=== PATIENT | male | born 1940 | race Caucasian/White ===

== ENCOUNTER → 2017-01-14 | Outpatient (CLI) | payer BC ==
[~2017-01-14] MED LIST: CHOL400C7 PO; MULT-190 PO; MULTTAB PO; OXYC-409 PO; RIVA1TAB PO
[2017-01-14 09:36] LABS: BASO % 0.2 %; BASO ABS # 0.01 K/uL (0-0.2); COMPLETE YES; EOS % 1.3 %; HEMATOCRIT 43.7 % (42-52); IG% 0.2 %; LYMPH % 32.1 %; LYMPH ABS # 1.77 K/uL (1.2-3.4); MEAN CELL VOLUME 91.8 fL (80-100); MEAN CORPUSCULAR HEMOGLOBIN 31.3 pg (25-34); MEAN CORPUSCULAR HGB CONC 34.1 g/dl (32-36); MEAN PLATELET VOLUME 12.7 fL (7.4-10.4); MONO % 9.3 %; NEUT % 56.9 %; PLATELET COUNT 186 K/uL (130-400); RED BLOOD COUNT 4.76 M/uL (4.7-6.1); WHITE BLOOD COUNT 5.51 K/uL (4.8-10.8)
[2017-01-14 09:48] LABS: ALT/SGPT 18 U/L (12-78); BLOOD UREA NITROGEN 19 mg/dl (7-18); CALCIUM 9.3 mg/dl (8.5-10.1); CARBON DIOXIDE 25 mmol/L (21-32); CHLORIDE 105 mmol/L (98-107); CREATININE 0.89 mg/dl (0.60-1.40); GLUCOSE 93 mg/dl (70-99); POTASSIUM 4.2 mmol/L (3.5-5.1); SODIUM 140 mmol/L (136-145)
[2017-01-14 09:58] LABS: ALB/GLOB RATIO 1.3 (0.9-2); ALKALINE PHOSPHATASE 60 U/L (45-117); AST/SGOT 14 U/L (15-37)
== END | disposition home or self-care (01) ==
LOC: C.LAB1850 07:23
PROVIDERS: ATTEND Internal Medicine
DX: E03.9 Hypothyroidism, unspecified (principal)

== ENCOUNTER → 2017-07-15 | Outpatient (CLI) | payer BC | END | disposition home or self-care (01) | LOC: C.LAB1850 09:28 | PROVIDERS: ATTEND Internal Medicine | DX: E03.9 Hypothyroidism, unspecified (principal) ==

== ENCOUNTER → 2018-01-12 | Outpatient (CLI) | payer BC ==
[2018-01-12 09:35] LABS: BASO % 0.4 %; BASO ABS # 0.02 K/uL (0-0.2); EOS % 1.2 %; EOS ABS # 0.06 K/uL (0-0.5); HEMATOCRIT 42.8 % (42-52); HEMOGLOBIN 14.7 g/dL (14.0-18.0); IG# 0.01 K/uL (0.00-0.02); LYMPH % 32.2 %; LYMPH ABS # 1.64 K/uL (1.2-3.4); MEAN CELL VOLUME 90.3 fL (80-100); MEAN CORPUSCULAR HGB CONC 34.3 g/dl (32-36); MEAN PLATELET VOLUME 12.2 fL (7.4-10.4); MONO % 8.4 %; MONO ABS # 0.43 K/uL (0.11-0.59); NEUT % 57.6 %; NEUT ABS # 2.94 K/uL (1.4-6.5); PLATELET COUNT 188 K/uL (130-400); RED CELL DISTRIBUTION WIDTH CV 13.2 % (11.5-14.5); RED CELL DISTRIBUTION WIDTH SD 43.7 fL (36.4-46.3)
[2018-01-12 10:02] LABS: ALT/SGPT 22 U/L (12-78); AST/SGOT 16 U/L (15-37); BLOOD UREA NITROGEN 19 mg/dl (7-18); CALCIUM 8.7 mg/dl (8.5-10.1); CARBON DIOXIDE 26 mmol/L (21-32); GLUCOSE 95 mg/dl (70-99); POTASSIUM 3.8 mmol/L (3.5-5.1); SODIUM 137 mmol/L (136-145)
[2018-01-12 10:09] LABS: ALKALINE PHOSPHATASE 63 U/L (45-117); CHOLESTEROL 150 mg/dl (0-200); LDL CHOLESTEROL CALCULATED 78 mg/dl; TOTAL PROTEIN 7.3 gm/dl (6.4-8.2)
== END | disposition home or self-care (01) ==
LOC: C.LAB1850 07:37
PROVIDERS: ATTEND Internal Medicine
DX: Z00.00 Encounter for general adult medical examination without abnormal findings (principal); I10 Essential (primary) hypertension; K21.9 Gastro-esophageal reflux disease without esophagitis; E03.9 Hypothyroidism, unspecified

== ENCOUNTER 2018-01-31 19:09 | Emergency (ER) | payer BC ==
[~2018-01-31] VITALS: Ht 170.2 cm; Wt 81.3 kg
[2018-01-31 19:17] VITALS: TEMP 36.7; Ht 170.2 cm; Wt 81.3 kg
--- NOTE | 2018-01-31 19:43 | EMERGENCY ROOM VISIT NOTE ---
ED Visit Note First contact with patient: 19:20 I have seen and examined this patient with Chris Mejia and generally agree with the treatment plan as discussed. Allergies Coded Allergies: No Known Allergies (Unverified , NONE, 01/31/18) Vital Signs Date Time Temp Pulse Resp B/P (MAP) Pulse Ox O2 Delivery O2 Flow Rate FiO2 01/31/18 19:17 36.7 77 18 154/88 98 Room Air Departure Information Referrals Kash Llanos M.D. (PCP) Patient Instructions My [facility]
[2018-01-31] MEDS ORDERED: ASCO500T3 PO (19:44)
[2018-01-31] MEDS ORDERED: CHOL20005 PO (19:44)
[2018-01-31] MEDS ORDERED: LEVO25TA PO (19:44)
[2018-01-31] MEDS ORDERED: OMEG10007 PO (19:44)
[2018-01-31] MEDS ORDERED: ASPI81TA28 PO (19:44)
[2018-01-31] MEDS ORDERED: LISI-461 PO (19:44)
[2018-01-31] MEDS ORDERED: ZNT/300 PO (19:44)
[2018-01-31] MEDS ORDERED: MULT-190 PO (19:44)
--- NOTE | 2018-01-31 19:46 | DIAGNOSTIC IMAGING REPORT ---
R HAND MIN 3 VIEWS ROUTINE CLINICAL HISTORY: 77 years-old Male presenting with RIGHT, EVAL FX, PAIN IN THUMB AND 1ST METACARPAL. TECHNIQUE: Frontal, oblique, and lateral views of the right hand were obtained. COMPARISON: None. FINDINGS: Joint space loss, osteophytosis, and subchondral sclerosis evident at the first carpometacarpal articulation. There is also joint space loss at the radiocarpal articulation with the scaphoid and subchondral sclerosis noted. No advanced degenerative changes noted elsewhere. No acute fracture or malalignment. IMPRESSION: 1. No acute osseous injury. 2. Advanced degenerative changes at the first carpometacarpal articulation characteristic of osteoarthritis. 3. Joint space loss and subchondral sclerosis at the radiocarpal articulation may also relate to osteoarthritis. Electronically signed by: Kash Deleon M.D. 01/31/2018 7:44 PM Dictated Date/Time: 01/31/2018 7:42 PM
--- NOTE | 2018-01-31 20:00 | EMERGENCY ROOM VISIT NOTE ---
ED Visit Note First contact with patient: 19:20 CHIEF COMPLAINT: Right hand injury yesterday Patient is a [id number] 77-year-old male who presents the emergency department for evaluation of right hand pain after a fall yesterday. He states that he fell, landing on his extended right hand and wrist. He thinks he jammed his right thumb into the ground when he fell. He notes pain and swelling in the palm of his hand, at the base of his thumb. He applied ice today which helped, then states that he got in the warm shower and the swelling worsened. He did not take any medication for discomfort. He denies any wrist or elbow pain. REVIEW OF SYSTEMS: Review of systems as per HPI. All other systems reviewed were negative. At least 6 systems reviewed. PMH: Electronic medical records are reviewed and summarized as above/below. See Problem List. SOCIAL HISTORY: Patient lives at home with his . Non-smoker. Retired. PHYSICAL EXAM: Vital Signs: Reviewed Nurse's notes. MENTAL STATUS: Alert and oriented. MUSCULOSKELETAL: Examination of the right hand and wrist notes mild soft tissue swelling over the thenar eminence, patient has tenderness to palpation over the first metacarpal, extending to the first MCP joint. He does not have any pain over the proximal phalanx or the IP joint of the thumb. He has diminished range of motion of the thumb due to pain and soft tissue swelling. There is no obvious deformity. He does not have any anatomic snuffbox tenderness. No pain over the remainder of the metacarpals. Wrist flexion and extension are full. There is no pain over the proximal radial head. Radial and ulnar pulses are easily palpable. Sensation light touch is intact. EMERGENCY DEPARTMENT COURSE: The patient was seen and assessed as above. X- rays of the right hand were obtained and noted marked degenerative changes there is no acute fracture or malalignment. Patient was wrapped with an Pedro Pablo wrap. Supportive care measures were discussed. He was encouraged to use ibuprofen or Tylenol for discomfort and follow-up with his family doctor or orthopedics if his symptoms are not improving. Differential diagnoses entertained included fracture, sprain, dislocation, contusion, among others. Medication reconciliation: I attest that I have personally reviewed the patient' s current medication list. Blood pressure screening: Patient was found to have a slightly elevated blood pressure due to circumstances. I do not believe that the patient requires hypertension monitoring. R HAND MIN 3 VIEWS ROUTINE CLINICAL HISTORY: 77 years-old Male presenting with RIGHT, EVAL FX, PAIN IN THUMB AND 1ST METACARPAL. TECHNIQUE: Frontal, oblique, and lateral views of the right hand were obtained. COMPARISON: None. FINDINGS: Joint space loss, osteophytosis, and subchondral sclerosis evident at the first carpometacarpal articulation. There is also joint space loss at the radiocarpal articulation with the scaphoid and subchondral sclerosis noted. No advanced degenerative changes noted elsewhere. No acute fracture or malalignment. IMPRESSION: 1. No acute osseous injury. 2. Advanced degenerative changes at the first carpometacarpal articulation characteristic of osteoarthritis. 3. Joint space loss and subchondral sclerosis at the radiocarpal articulation may also relate to osteoarthritis. Problem List Medical Problems: (1) Benign Hypertension Status: Chronic (2) Hypothyroidism, Unspecified Status: Chronic Current/Historical Medications Scheduled Ascorbic Acid (Vitamin C), 1,000 MG PO DAILY Aspirin (Aspirin Ec), 81 MG PO DAILY Cholecalciferol (Vitamin D3), 2,000 UNITS PO DAILY Fish Oil (Temple-3), 1 CAP PO DAILY Levothyroxine Sodium (Synthroid), 25 MCG PO DAILY Lisinopril (Zestril), 10 MG PO DAILY Ocuvite Preservision (Ocuvite Preservision), 1 TAB PO DAILY Ranitidine HCl (Ranitidine HCl), 300 MG PO HS Allergies Coded Allergies: No Known Allergies (Unverified , NONE, 01/31/18) Vital Signs Date Time Temp Pulse Resp B/P (MAP) Pulse Ox O2 Delivery O2 Flow Rate FiO2 01/31/18 20:14 71 18 130/78 95 01/31/18 19:17 36.7 77 18 154/88 98 Room Air Departure Information Impression Primary Impression: Sprain of right thumb Referrals Kash Llanos M.D. (PCP) Patient Instructions [facility] Additional Instructions Ibuprofen(Motrin, Advil) may be used for fever or pain. Use 600mg every six hours as needed. Take with food. Avoid using more than 2400mg in a 24 hour period. Do not use 2400mg per day for more than three consecutive days without physician direction. Prolonged inappropriate use can lead to stomach upset or ulcers. This medication can be taken if you need to drive, work, or perform activities which may be dangerous when taking narcotic pain medication. (AND/OR) Acetaminophen(Tylenol) may be used for fever or pain. Use 1000mg every six hours as needed. Avoid using more than 3000mg in a 24 hour period. This medication can be taken if you need to drive, work, or perform activities which may be dangerous when taking narcotic pain medication. Ice compresses for 20 minutes at a time four times daily for 2-3 days. Use the Pedro Pablo wrap as instructed. Rest and elevate your injury. May return to normal activity as your symptoms allow. Continue current medications. Return to the ER immediately for any numbness, tingling, severe pain, extreme swelling in the extremity or as needed. Followup with your family doctor or orthopedic surgery if no improvement in 5-7 days.
[2018-01-31 20:14] VITALS: BP 130/78; PULSE 71; O2SAT 95
== END 2018-01-31 20:14 | disposition home or self-care (01) ==
LOC: C.EDB 19:10 → C.EDD 20:14
DX: S63.601A Unspecified sprain of right thumb, initial encounter (principal); W19.XXXA Unspecified fall, initial encounter; I10 Essential (primary) hypertension; E03.9 Hypothyroidism, unspecified; Z79.82 Long term (current) use of aspirin